=== PATIENT | female | born 2000 | race Caucasian/White ===

== ENCOUNTER 2025-03-14 20:59 | Emergency (ER) | payer OTHER, SELFPAY ==
--- NOTE | ~2025-03-14 | XR_ITS ---
Examination: XR chest 2V Clinical History: syncope Comparison: None Technique: PA and Lateral Findings: Cardiomediastinal silhouette normal size and configuration. Lungs clear. No acute bony abnormality. IMPRESSION: 1. No acute cardiopulmonary findings. Reviewed, dictated and finalized at location R.
[2025-03-14 21:01] VITALS: BP 130/86; PULSE 87; RESP 18; TEMP 36.2; O2SAT 100
--- NOTE | 2025-03-14 21:01 | ECG_ITS ---
Test Date: 2025-03-14 21:11:56 Measurements Intervals [place] Rate: 73 P: 82 KS: 124 QRS: 79 QRSD: 95 T: 46 QT: 397 QTc: 439 Interpretive Statements SINUS RHYTHM WITH SINUS ARRHYTHMIA NORMAL ELECTROCARDIOGRAM No previous ECG available for comparison Electronically Signed On 03-15-2025 08:22:25 CDT by Esteban Jordan M.D.
[2025-03-14 21:26] LABS: Hematocrit 41.7 % (37.0-47.0); Hemoglobin 14.9 g/dL (12.0-15.0); Immature Granulocyte Percent A 0.3 % (0-0.5); Lymphocytes Absolute Auto 1.51 K/mm3 (0.9-3.2); Mean Corpuscular HGB Conc 35.7 g/dl (32-36); Mean Corpuscular Hemoglobin 29.0 pg (26-34); Mean Corpuscular Volume 81.3 fl (80-100); Nucleated Red Blood Cells Absolute Auto 0.000 K/mm3 (0.0-0.012); Nucleated Red Blood Cells Perc 0.0 % (0.0-0.2); Platelet Count Result 235 k/mm3 (150-375); Red Blood Count 5.13 M/mm3 (4.2-5.4); White Blood Count 6.7 K/mm3 (4.5-10.0)
[2025-03-14 21:49] LABS: Alanine Aminotransferase 25 U/L (6-35); Albumin Level 5.0 g/dL (3.5-5.1); Alkaline Phosphatase 61 U/L (38-126); Anion Gap 11 mmol/L (4-12); Aspartate Amino Transferase 25 U/L (14-36); Bilirubin,Total 1.4 mg/dL (0.2-1.3); Blood Urea Nitrogen 14 mg/dL (7-17); Calcium 9.1 mg/dL (8.4-10.2); Carbon Dioxide 27 mmol/L (22-30); Chloride 101 mmol/L (98-107); Estimated CRCL calculation 82 ml/min; Estimated Glomerular Filt Rate > 60; Glucose 158 mg/dL (65-110); Potassium 3.6 mmol/L (3.4-5.0); Sodium 139 mmol/L (137-145); Total Protein 8.0 g/dL (6.3-8.2)
[2025-03-14 22:58] LABS: BEDSIDEPREGUCG Negative (Negative)
--- NOTE | 2025-03-14 23:07 | ED.SYNCOPE ---
HPI - Syncope General Chief Complaint: Syncope Stated Complaint: I fainted and not sure why Time Seen by Provider: 03/14/25 22:38 History of Present Illness HPI narrative: Patient presenting here with episode of syncope, she was hanging out with a friend when the friend stated that she suddenly passed out, she woke up on the ground, cannot recall what happened, supposedly lasted about 30 seconds she had no chest pain, shortness of breath, though she did feel quite anxious after she woke which she attributes to her friends being anxious. She currently has no symptoms whatsoever, she states she feels great, no chest pain, shortness breath, nausea vomiting, no headache. Related Data Allergies Allergy/AdvReac Type Severity Reaction Status Date / Time No Known Drug Allergies Allergy Abdominal Verified 03/14/25 21:07 Pain Review of Systems Review of Systems: All systems reviewed & are unremarkable except as noted in HPI and below Exam Narrative: EXAMINATION OF ORGAN SYSTEMS/BODY AREAS: Constitutional: Vital signs per nursing GENERAL:[No acute distress, non-toxic appearing.] HEAD: Normal with no signs of head trauma. EYES: EOMI, conjunctiva normal ENT: Hearing grossly intact LUNGS: Nonlabored breathing. HEART: [Regular rate and rhythm] ABD: [Soft], [nontender to palpation] EXT: Normal range of motion SKIN: [No rashes or lesions.] NEURO: [Alert and oriented x 3. No gross focal sensory or strength deficits.] PSYCH: Normal affect Course Vital Signs Vital signs: Vital Signs Temperature 97.2 F L 03/14/25 21:01 Pulse Rate 87 03/14/25 21:01 Respiratory Rate 18 03/14/25 21:01 Blood Pressure 130/86 03/14/25 21:01 Pulse Oximetry 100 03/14/25 21:01 Oxygen Delivery Room Air 03/14/25 21:01 Temperature 97.2 F L 03/14/25 21:01 Pulse Rate 87 03/14/25 21:01 Respiratory Rate 18 03/14/25 21:01 Blood Pressure 130/86 03/14/25 21:01 Pulse Oximetry 100 03/14/25 21:01 Oxygen Delivery Room Air 03/14/25 21:01 MDM - Syncope MDM Narrative Medical decision making narrative: Patient presenting here with episode of syncope, she was hanging out with a friend when the friend stated that she suddenly passed out, she woke up on the ground, cannot recall what happened, supposedly lasted about 30 seconds she had no chest pain, shortness of breath, though she did feel quite anxious after she woke which she attributes to her friends being anxious. She currently has no symptoms whatsoever, she states she feels great, no chest pain, shortness breath, nausea vomiting, no headache. On exam she is extremely well-appearing in no distress, workup shows normal labs, EKG on my independent interpretation shows normal sinus rhythm rate 73, SD 124, QRS 95, QTC 439, no ST elevations depressions or signs of acute ischemia or arrhythmia. Patient has no symptoms and would like to go home and I feel this is quite reasonable. Chest x-ray on my independent interpretation does not show any obvious consolidation or pneumothorax. I discussed with patient her workup here, but I cannot rule out any other dangerous causes such as a seizure or arrhythmia, recommended follow-up to PCP, consider possible Holter monitor, with strict return precautions. Patient expresses agreement/understanding Lab Data 03/14/25 21:20 03/14/25 21:20 Labs: Lab Results 03/14/25 03/14/25 03/14/25 Range/Units 21:06 21:20 22:56 WBC 6.7 (4.5-10.0) K/mm3 RBC 5.13 (4.2-5.4) M/mm3 Hgb 14.9 (12.0-15.0) g/dL Hct 41.7 (37.0-47.0) % MCV 81.3 (80-100) fl MCH 29.0 (26-34) pg MCHC 35.7 (32-36) g/dl RDW 13.7 (11.5-14.5) % Plt Count 235 (150-375) k/mm3 MPV 10.4 (7.4-10.4) fl Immature Gran % (Auto) 0.3 (0-0.5) % Neut % (Auto) 67.3 (45.5-73.1) % Lymph % (Auto) 22.6 (18.3-44.2) % Coleman % (Auto) 8.1 (2.6-8.5) % Eos % (Auto) 1.0 (0-4.4) % Baso % (Auto) 0.7 (0.2-1.2) % Lymph # (Auto) 1.51 (0.9-3.2) K/mm3 Coleman # (Auto) 0.5 (0.1-0.6) K/mm3 Eos # (Auto) 0.1 (0-0.3) K/mm3 Baso # (Auto) 0.1 (0.0-0.1) K/mm3 Abs Immat Gran (auto) 0.02 (0.00-0.031) K/mm3 Absolute Neuts (auto) 4.5 (1.3-6.7) K/mm3 Absolute Nucleated RBC 0.000 (0.0-0.012) K/mm3 Nucleated RBC % 0.0 (0.0-0.2) % Sodium 139 (137-145) mmol/L Potassium 3.6 (3.4-5.0) mmol/L Chloride 101 (98-107) mmol/L Carbon Dioxide 27 (22-30) mmol/L Anion Gap 11 (4-12) mmol/L BUN 14 (7-17) mg/dL Creatinine 0.72 (0.7-1.0) mg/dL Estim Creat Clear Calc 82 ml/min Estimated GFR > 60 (59 - ) Glucose 158 H (65-110) mg/dL POC Capillary Glucose 129 H (65-105) mg/dl Calcium 9.1 (8.4-10.2) mg/dL Total Bilirubin 1.4 H (0.2-1.3) mg/dL AST 25 (14-36) U/L ALT 25 (6-35) U/L Alkaline Phosphatase 61 (38-126) U/L Total Protein 8.0 (6.3-8.2) g/dL Albumin 5.0 (3.5-5.1) g/dL POC Urine HCG, Qual Negative (Negative) Discharge Plan Discharge Clinical Impression: Syncope Patient Disposition: Home Condition: Stable Instructions: Syncope (ED) Additional Instructions: We cannot find a cause for your passing out today. Follow-up with a primary care doctor, you may need to have further testing, such as a Holter monitor to monitor your heart, if you have another episode or if you start experiencing any chest pain or shortness of breath or funny heartbeats, please return to the emergency room. Patient Language: [place] Follow-up/Referrals: PHYSICIAN,[employer] PLATING MACHINE OPERATOR [Primary Care Provider, Internal Medicine] Dago Zuñiga MD [Physician, Family Practice] - 2 Days
== END 2025-03-14 23:20 | disposition home or self-care (01) ==
LOC: ANHED 23:11
PROVIDERS: Emergency Provider Emergency Medicine
DX: R55 Syncope and collapse (principal)
CPT/HCPCS: 36415; 71046; 80053; 81025; 82948; 85025; 93005; 99284